=== PATIENT | female | born 1970 | race Caucasian/White ===

== ENCOUNTER 2016-09-19 18:06 | Emergency (ER) | payer SELFPAY ==
[2016-09-19 18:14] VITALS: RESP 20
--- NOTE | 2016-09-19 19:47 | EDPHY ---
H & P Time Seen by Provider: 09/19/16 19:47 HPI/ROS: Chief complaint. Head pain HPI. 46-year-old female had pain for 1 year. She describes as posterior right headache. Constant. Denies trauma. Recently some cough and congestion. She says occasionally the headache goes down and mock from the base of her skull to her shoulders. Denies focal weakness paresthesias, fever, visual symptoms. She says I just can't take it anymore and I want the pain to. However she has not seen a physician about this. She has been using Tylenol and ibuprofen without relief ROS Constitutional. no fever/chills, no weakness Eyes. no problems with vision ENT. no sore throat, no nasal drainage Cardiovascular. no chest pain Respiratory. no shortness of breath, no cough Abdominal. no abdominal pain, no nausea/vomiting, no diarrhea . no problems urinating MS. no calf pain/swelling, no neck/back pain, no joint pain Skin. no rash Lymph. no swollen glands Neuro. Headache Past Medical/Surgical History: The gastric bypass Social History: Single daily smoker no alcohol Smoking Status: Current every day smoker Physical Exam: General Appearance: Alert crying well-developed female mild distress vital signs show an initial blood pressure 165/127 Eyes: Pupils equal and round no pallor or injection. ENT, Mouth: Mucous membranes are moist. Respiratory: There are no retractions, lungs are clear to auscultation. Cardiovascular: Regular rate and rhythm. Gastrointestinal: Abdomen is soft and nontender, no masses, bowel sounds normal. Neurological: Awake and alert, sensory and motor exams grossly normal. Skin: Warm and dry, no rashes. Musculoskeletal: Neck is supple nontender. Extremities symmetrical, full range of motion. Psychiatric: Patient is oriented X 3, there is no agitation. Constitutional: Initial Vital Signs Temperature (C) 36.9 C 09/19/16 18:06 Heart Rate 102 H 09/19/16 18:06 Respiratory Rate 20 09/19/16 18:06 Blood Pressure 165/127 H 09/19/16 18:06 O2 Sat (%) 93 09/19/16 18:06 O2 Delivery Mode Room Air Allergies/Adverse Reactions: No Known Allergies Allergy (Unverified 09/19/16 18:11) Home Medications: Medication Instructions Recorded CYCLOBENZAPRINE HCL [Flexeril] 5 mg PO TIDPRN PRN #20 tab 09/19/16 Hydrochlorothiazide [HCTZ (*)] 25 mg PO DAILY #14 tab 09/19/16 Lisinopril 10 mg PO DAILY #14 tablet 09/19/16 Potassium Chloride 20 meq PO DAILY #14 tab.er.prt 09/19/16 Medical Decision Making - Diagnostics Imaging: Head CT reviewed by me and discussed with Dr. Tolentino is normal Procedures: Hydrocodone and Ativan. ED Course/Re-evaluation: Re-evaluation 9:15 p.m. patient is better. She and I discussed treatment plan including criteria for return importance of follow-up further evaluation. She expresses understanding and agreement When we talked about lisinopril as antihypertensive therapy she tells me that in the past it has given her a cough. We will use hydrochlorothiazide and I told her that she needed to take potassium supplement with it Differential Diagnosis: I considered hypertension, intracranial bleeding, brain tumor, anxiety - Data Points Medications Given: Discontinued Medications Acetaminophen/Hydrocodone Bitart ([place] 5/325) 1 tab PO EDNOW ONE Stop: 09/19/16 20:05 Last Admin: 09/19/16 20:08 Dose: 1 tab Lorazepam (Ativan) 1 mg PO EDNOW ONE Stop: 09/19/16 20:04 Last Admin: 09/19/16 20:08 Dose: 1 mg Departure - Departure Disposition: Home, Routine, Self-Care Clinical Impression: Headache Qualifiers: Headache type: unspecified Headache chronicity pattern: chronic headache Intractability: intractable Qualifier Code: (R51) Headache Condition: Good Instructions: General Headache (ED) Additional Instructions: Your blood pressure is high and we will start to on blood pressure medication today. Flexeril will help with muscle tension relaxation. Ibuprofen for headache. On Thursday call and make an appointment with Neurology. Take potassium supplement with HCTZ. Referrals: Patient,NotPresent [Unknown] - As per Instructions Tim Horne DO [Medical Doctor] - As per Instructions Prescriptions: CYCLOBENZAPRINE HCL [Flexeril] 5 mg PO TIDPRN PRN #20 tab PRN Reason: Spasms Hydrochlorothiazide [HCTZ (*)] 25 mg PO DAILY #14 tab Lisinopril 10 mg PO DAILY #14 tablet Potassium Chloride 20 meq PO DAILY #14 tab.er.prt
[2016-09-19] MEDS ORDERED: LORazepam 1 MG TAB PO ONE (20:03)
[2016-09-19] MEDS ORDERED: HYDROCODONE/APAP 5/325 TAB PO ONE (20:04)
--- NOTE | 2016-09-19 20:54 | CT ---
CT Scan of the Head (Without Contrast) Clinical Indications: 46-year-old female with cephalgia for one year. Technique: Axial CT images were acquired from the foramen magnum through the skull vertex, without i ntravenous contrast. Soft tissue, subdural, and bone windows were reviewed on the computer workstati on. Images were reformatted at 5.0 and 1.25 mm increments, and are reformatted in sagittal and coron al planes. DFOV is 25.0 cm. Dose reduction techniques were utilized. Comparison Study: None. Findings: There are no mass lesions identified, and there is no evidence of an acute or subacute intr acranial hemorrhage, or an acute infarct. The ventricles and subarachnoid spaces are normal in size for this age group. The bone windows reveal no sign of a fracture. There is some mild atherosclerot ic calcification involving the cavernous carotid arteries, left greater than right. The mastoid air c ells are free of fluid. There is trace mucosal thickening in the floor of the left maxillary sinus, a nd some mild mucosal thickening of the ethmoids (right greater than left). The frontal, right maxilla ry, and the sphenoid sinuses are patent. The craniocervical junction, sella turcica, pineal gland, an d the orbits are unremarkable. If there is continuing clinical concern regarding the patient's sympto ms, MR imaging could be considered, if otherwise not contraindicated. Impression: 1. Normal unenhanced CT of the brain. 2. Minor chronic mucosal thickening of the left maxillary sinus and of the right and left ethmoid par anasal sinuses. Results were discussed with Dr. Grady Moore. A test result has been communicated to a licensed care provider and documented in [id number], 8:50:15 PM , 09/19/2016, [id number] Message ID [id number].
[2016-09-19 21:59] VITALS: PULSE 90
[2016-09-19 22:38] VITALS: BP 141/98; TEMP 98.1; O2SAT 97
== END 2016-09-19 22:43 | disposition home or self-care (01) ==
DX: R51 Headache (principal); F17.200 Nicotine dependence, unspecified, uncomplicated